=== PATIENT | female | born 1985 | race Caucasian/White ===

== ENCOUNTER 2019-03-17 12:52 | Outpatient (CLI) | payer BC ==
[2019-03-17] MEDS ORDERED: IOHEXOL 50 ML IV ONE (13:24)
== END 2019-03-17 20:38 | disposition home or self-care (01) ==
LOC: SRD 12:52
PROVIDERS: ATTEND Specialist
DX: N92.6 Irregular menstruation, unspecified (principal)
CPT/HCPCS: 58340; 74740; C1751; Q9967